=== PATIENT | female | born 2000 | race African-American/Black ===

== ENCOUNTER 2024-01-31 10:13 | Emergency (ER) | payer MEDICAID ==
[~2024-01-31 10:13] MED LIST: DIVAL250 PO
[2024-01-31 10:20] VITALS: PULSE 89; RESP 18; O2SAT 99
[2024-01-31 11:20] LABS: HEMATOCRIT. 31.4 % (36.0-48.0); HEMOGLOBIN. 10.4 g/dL (12.0-16.0); MEAN CORPUSCULAR HEMOGLOBIN 28.5 pg (28.0-32.0); MEAN CORPUSCULAR VOLUME 86.2 fL (81.0-99.0); MEAN PLATELET VOLUME 8.2 fl (7.4-10.4); PLATELET 271 x1000/uL (130-400); RED BLOOD CELL COUNT 3.65 mill/uL (4.2-5.4); RED CELL DISTRIBUTION WIDTH 13.3 % (11.6-14.6); WHITE BLOOD COUNT 4.6 x1000/uL (4.5-11.0)
[2024-01-31 11:21] LABS: CHLORIDE 102 mEq/L (98-107); DIFFERENTIAL COMMENT 1; POTASSIUM 3.2 mEq/L (3.5-5.1); SODIUM 136 mEq/L (136-145)
[2024-01-31 11:22] LABS: CALCIUM 9.4 mg/dL (8.7-10.4); CARBON DIOXIDE 25 mEq/L (21-32)
[2024-01-31 11:27] LABS: CREATININE 0.5 mg/dL (0.6-1.0); GLUCOSE 108 mg/dL (70-105); UREA NITROGEN BLOOD 8 mg/dL (9-23)
[2024-01-31 11:42] LABS: ETHANOL BLOOD < 10 mg/dL (<10); PHENOBARBITAL < 3.0 ug/mL (15.0-40.0)
[2024-01-31 11:43] LABS: CARBAMAZEPINE < 0.4 ug/mL (4-12); PHENYTOIN < 2.0 ug/mL (10-20); VALPROIC ACID < 3.0 ug/mL (50-100)
[2024-01-31 12:38] LABS: TROPONIN I HIGH SENSITIVITY < 4 ng/L (3.0-34)
[2024-01-31 15:17] LABS: ATYPICAL LYMPHOCYTES 1; PLATELET ESTIMATE NORMAL
== END 2024-01-31 11:14 | disposition left against medical advice (07) ==
LOC: ER 10:13
DX: R55 Syncope and collapse (principal); J45.909 Unspecified asthma, uncomplicated
CPT/HCPCS: 36415; 80048; 80156; 80165; 80184; 80185; 80320; 84484; 85025; 99283; G0480

== ENCOUNTER 2024-01-31 11:42 | Emergency (ER) | payer MEDICAID ==
[~2024-01-31] VITALS: Ht 170.2 cm; Wt 73.0 kg
[2024-01-31 11:49] VITALS: BP 125/80; PULSE 86; RESP 18; O2SAT 100
== END 2024-01-31 12:45 | disposition left against medical advice (07) ==
LOC: ER 11:42
DX: O99.351 Diseases of the nervous system complicating pregnancy, first trimester (principal); O99.511 Diseases of the respiratory system complicating pregnancy, first trimester; G40.909 Epilepsy, unspecified, not intractable, without status epilepticus; Z3A.01 Less than 8 weeks gestation of pregnancy
CPT/HCPCS: 99283